=== PATIENT | male | born 1980 | race Caucasian/White ===

== ENCOUNTER 2017-01-15 17:39 | Emergency (ER) | payer BC ==
[~2017-01-15] VITALS: Ht 185.4 cm; Wt 124.7 kg
[2017-01-15] MEDS ORDERED: MORPHINE SULFATE 10 MG/ML VIAL. IV ONE ×2 (18:30→19:30)
[2017-01-15] MEDS ORDERED: IV NORMAL SALINE 1000ML BAG 1,000 ML IV ONE (18:30)
[2017-01-15] MEDS ORDERED: ONDANSETRON PF 4 MG/2 ML VIAL. IV ONE ×2 (18:30→19:30)
--- NOTE | 2017-01-15 18:32 | PHYS DOC ---
Past Medical History Past Medical History: No Pertinent History Past Surgical History: No Surgical History Alcohol Use: None Drug Use: None Adult General Chief Complaint Chief Complaint: ABDOMINAL PAIN HPI HPI Patient is a 36 year old male who presents with mild bilateral lower abdominal pain worse on the left side that began yesterday. Patient denies any nausea vomiting. He is also complaining of dysuria, patient denies any concerns for STDs. He states he feels like he needs to have a bowel movement but whenever he tries nothing comes out. Denies any history of constipation. Denies any fever. Denies any significant previous medical history. Review of Systems Review of Systems Constitutional: Denies fever or chills [] Eyes: Denies change in visual acuity, redness, or eye pain [] HENT: Denies nasal congestion or sore throat [] Respiratory: Denies cough or shortness of breath [] Cardiovascular: No additional information not addressed in HPI [] GI: Bilateral lower abdominal pain worse on the left side : Denies dysuria or hematuria [] Musculoskeletal: Denies back pain or joint pain [] Integument: Denies rash or skin lesions [] Neurologic: Denies headache, focal weakness or sensory changes [] Endocrine: Denies polyuria or polydipsia [] Current Medications Current Medications Current Medications Medications (Trade) Dose Ordered Sig/Rj Start Time Stop Time Status Last Admin Dose Admin Ciprofloxacin Lactate 200 ml @ 200 mls/hr 1X STAT 01/15/17 19:30 01/15/17 20:29 01/15/17 19:40 200 MLS/HR Metronidazole (FLAGYL 500Mmg PREMIX) 100 ml @ 100 mls/hr 1X ONCE 01/15/17 19:30 01/15/17 20:29 01/15/17 19:46 100 MLS/HR Morphine Sulfate 5 mg 1X ONCE 01/15/17 19:30 01/15/17 19:33 DC Ondansetron HCl (Zofran) 4 mg 1X ONCE 01/15/17 19:30 01/15/17 19:33 DC Ondansetron HCl 4 mg 4 mg 1X ONCE 01/15/17 18:30 01/15/17 18:39 DC 01/15/17 18:52 4 MG Sodium Chloride (Iv Sodium Chloride 0.9% 1000ml Bag) 1,000 ml @ 1,000 mls/hr 1X ONCE 01/15/17 18:30 01/15/17 19:29 DC 01/15/17 18:51 1,000 MLS/HR Allergies Allergies Allergies Coded Allergies Type Severity Reaction Last Updated Verified No Known Drug Allergies 01/15/17 No Physical Exam Physical Exam Constitutional: Well developed, well nourished, no acute distress, non-toxic appearance. [] HENT: Normocephalic, atraumatic, bilateral external ears normal, oropharynx moist, no oral exudates, nose normal. [] Eyes: PERRLA, EOMI, conjunctiva normal, no discharge. [] Neck: Normal range of motion, no tenderness, supple, no stridor. [] Cardiovascular:Heart rate regular rhythm, no murmur [] Lungs & Thorax: Bilateral breath sounds clear to auscultation [] Abdomen: Bowel sounds normal, soft, diffuse tenderness to the abdomen worse on the left side, negative Hodges's sign, negative psoas sign, negative obturator sign, no masses, no pulsatile masses. No guarding no rebound pain or tenderness. Skin: Warm, dry, no erythema, no rash. [] Back: No tenderness, no CVA tenderness. [] Extremities: No tenderness, no cyanosis, no clubbing, ROM intact, no edema. [] Neurologic: Alert and oriented X 3, normal motor function, normal sensory function, no focal deficits noted. [] Psychologic: Affect normal, judgement normal, mood normal. [] Current Patient Data Vital Signs Vital Signs Date Time Temp Pulse Resp B/P Pulse Ox O2 Delivery O2 Flow Rate FiO2 01/15/17 19:42 81 18 112/65 97 Room Air 01/15/17 18:12 99.1 99.1 Lab Values Laboratory Tests Test 01/15/17 18:10 White Blood Count 14.6x10^3/uL (4.0-11.0) H Red Blood Count 4.65x10^6/uL (4.30-5.70) Hemoglobin 13.3g/dL (13.0-17.5) Hematocrit 41.5% (39.0-53.0) Mean Corpuscular Volume 89fL (79-100) Mean Corpuscular Hemoglobin 29pg (25-35) Mean Corpuscular Hemoglobin Concent 32g/dL (31-37) Red Cell Distribution Width 13.7% (11.5-14.5) Platelet Count 200x10^3/uL (140-400) Neutrophils (%) (Auto) 79% (31-73) H Lymphocytes (%) (Auto) 12% (24-48) L Monocytes (%) (Auto) 8% (0-9) Eosinophils (%) (Auto) 1% (0-3) Basophils (%) (Auto) 0% (0-3) Neutrophils # (Auto) 11.5x10^3uL (1.8-7.7) H Lymphocytes # (Auto) 1.7x10^3/uL (1.0-4.8) Monocytes # (Auto) 1.2x10^3/uL (0.0-1.1) H Eosinophils # (Auto) 0.1x10^3/uL (0.0-0.7) Basophils # (Auto) 0.0x10^3/uL (0.0-0.2) Urine Collection Type Unknown Urine Color [place] Urine Clarity Clear Urine pH 5.5 Urine Specific [place] 1.010 Urine Protein Negativemg/dL (NEG-TRACE) Urine Glucose (UA) Negativemg/dL (NEG) Urine Ketones (Stick) Negativemg/dL (NEG) Urine Blood Negative (NEG) Urine Nitrite Positive (NEG) Urine Bilirubin Negative (NEG) Urine Urobilinogen Dipstick 1.0mg/dL (0.2 mg/dL) Urine Leukocyte Esterase Negative (NEG) Urine RBC Occ/HPF (0-2) Urine WBC Occ/HPF (0-4) Urine Squamous Epithelial Cells None/LPF Urine Bacteria 0/HPF (0-FEW) Sodium Level 140mmol/L (136-145) Potassium Level 3.8mmol/L (3.5-5.1) Chloride Level 104mmol/L (98-107) Carbon Dioxide Level 25mmol/L (21-32) Anion Gap 11 (6-14) Blood Urea Nitrogen 14mg/dL (8-26) Creatinine 1.0mg/dL (0.7-1.3) Estimated GFR (Cockcroft-Gault) 85.0 BUN/Creatinine Ratio 14 (6-20) Glucose Level 105mg/dL (70-99) H Calcium Level 9.4mg/dL (8.5-10.1) Total Bilirubin 0.5mg/dL (0.2-1.0) Aspartate Amino Transferase (AST) 15U/L (15-37) Alanine Aminotransferase (ALT) 20U/L (16-63) Alkaline Phosphatase 69U/L (46-116) Total Protein 7.2g/dL (6.4-8.2) Albumin 3.7g/dL (3.4-5.0) Albumin/Globulin Ratio 1.1 (1.0-1.7) Lipase 87U/L (73-393) Laboratory Tests 01/15/17 18:10 Laboratory Tests 01/15/17 18:10 EKG EKG [] Radiology/Procedures Radiology/Procedures []PROCEDURE CT abdomen and pelvis without intravenous contrast. HISTORY Lower abdominal pain, possible constipation. TECHNIQUE Helical CT of the abdomen and pelvis was performed without intravenous or oral contrast. Exposure: One or more of the following individualized dose reduction techniques were utilized for this examination: 1. Automated exposure control. 2. Adjustment of the mA and/or kV according to patient size. 3. Use of iterative reconstruction technique. COMPARISON None. FINDINGS Evaluation of solid organs is limited by lack of intravenous contrast. Evaluation of enteric structures may be limited by lack of oral contrast. Liver, spleen, pancreas, gallbladder, and bilateral adrenal glands are unremarkable. Bilateral kidneys and ureters free of stone or obstruction. No bowel obstruction is seen. Appendix is without evidence of inflammation. Urinary bladder is unremarkable. There is a large amount of inflammatory change involving the lower pelvis adjacent to the sigmoid colon centered at a few diverticula, compatible with acute diverticulitis. No perforation is seen. No focal fluid collection to suggest focal abscess is identified at this time. IMPRESSION 1. CT evidence of acute sigmoid diverticulitis. No perforation or abscess identified at this time. 2. No evidence of urinary stone. Electronically signed by: Jaime Neves MD (Jan 15, 2017 19:03:35) DICTATED and SIGNED BY: JAIME NEVES MD DATE: 01/15/171902 CC: JACINTO MORROW APRN ~ Course & Med Decision Making Course & Med Decision Making Pertinent Labs and Imaging studies reviewed. (See chart for details) Patient is in the ED with bilateral low abdominal pain worse on the left side and a sensation that he needs to go the bathroom but he can't since yesterday. He Is also complaining of dysuria with no concern for STDs urine was sent to lab for UA and STD. Urine positive for nitrites, CBC with a WBC of 14.6 and a slight left shift. CMP and lipase with no acute findings. Vitals on arrival to the ED temperature 99.1 heart rate 92 respiration 20 O2 sats 97% on room air blood pressure 128/73. CT of the abdomen and pelvic is noted for acute sigmoid diverticulitis. Patient was offered admission to the hospital, patient states he is in town on vacation at the [facility] and prefers not to be admitted. He appears well, he was given IV fluid, Cipro and Flagyl. He was discharged with Cipro and Flagyl, Zofran as well as hydrocodone as needed for pain. He was instructed to return to the ED at any point his symptoms worsen or he has concerning symptoms. He is to follow-up with his PCP and GI next week. Dragon Disclaimer Dragon Disclaimer This electronic medical record was generated, in whole or in part, using a voice recognition dictation system. Departure Departure Impression: Primary Impression: Diverticulitis Additional Impression: Urinary tract infection Disposition: 01 HOME, SELF-CARE Condition: STABLE Referrals: MALI RAMSEY MD Follow-up with your doctor or the provided drywall hanger next week Patient Instructions: Diverticulitis, [id number], Urinary Tract Infection Additional Instructions: You were seen for urinary tract infection and diverticulitis. You preferred to try outpatient treatment. Please ensure you take the antibiotics as prescribed and if your symptoms worsen or you have any concerns come back to the emergency room right away. Push fluids. Go slow on your diet starting with clear liquids. Scripts Hydrocodone/Apap 5-325 ([place] 5-325 Tablet)1 Each Tablet1-2 Tab PO Q4-6HRS #25 TAB Prov:MUTUNGAJACINTO RESOLUTION AGENT 01/15/17 Ondansetron (Zofran Odt)4 Mg Tab.rapdis1 Tab SL Q8HRS #15 TAB Prov:MUTUNGAJACINTO RESOLUTION AGENT 01/15/17 Metronidazole (Flagyl)500 Mg [id number] Mg PO TID #30 TAB Prov:MUTUNGAJACINTO RESOLUTION AGENT 01/15/17 Ciprofloxacin Hcl (Cipro)500 Mg Tablet1 Tab PO BID #20 TAB Prov:MUTUNGAJACINTO RESOLUTION AGENT 01/15/17 Problem Qualifiers Primary Impression: Diverticulitis Diverticulitis site: unspecified part of intestinal tract Diverticulitis bleeding: without bleeding Diverticulitis complication: without perforation or abscess Qualified Code: K57.92 - Diverticulitis of intestine, part unspecified, without perforation or abscess without bleeding Additional Impression: Urinary tract infection Urinary tract infection type: acute cystitis Hematuria presence: without hematuria Qualified Code: N30.00 - Acute cystitis without hematuria JACINTO MORROW APRN Jan 15, 2017 18:32
[2017-01-15 18:39] LABS: BASO % 0 % (0-3); EOS % 1 % (0-3); HEMATOCRIT 41.5 % (39.0-53.0); HEMOGLOBIN 13.3 g/dL (13.0-17.5); LYMPH # 1.7 x10^3/uL (1.0-4.8); LYMPH % 12 % (24-48); MEAN CORPUSCULAR HEMOGLOBIN 29 pg (25-35); MEAN CORPUSCULAR HGB CONC 32 g/dL (31-37); MEAN CORPUSCULAR VOLUME 89 fL (79-100); MONO % 8 % (0-9); NEUT % 79 % (31-73); PLATELET COUNT 200 x10^3/uL (140-400); RED BLOOD COUNT 4.65 x10^6/uL (4.30-5.70); RED CELL DISTRIBUTION WIDTH 13.7 % (11.5-14.5); WHITE BLOOD COUNT 14.6 x10^3/uL (4.0-11.0)
[2017-01-15 18:41] LABS: BILIRUBIN,URINE NEGATIVE (NEG); GLUCOSE,URINE NEGATIVE (NEG); NITRITE,URINE POSITIVE (NEG); PH,URINE 5.5; PROTEIN,URINE NEGATIVE (NEG-TRACE)
[2017-01-15 18:46] LABS: CALCIUM 9.4 mg/dL (8.5-10.1); POTASSIUM 3.8 mmol/L (3.5-5.1)
[2017-01-15 18:49] LABS: BACTERIA,URINE 0 /HPF (0-FEW); RBC,URINE OCC /HPF (0-2); WBC,URINE OCC /HPF (0-4)
[2017-01-15 18:52] LABS: ALBUMIN 3.7 g/dL (3.4-5.0); ALBUMIN/GLOBULIN RATIO 1.1 (1.0-1.7); TOTAL BILIRUBIN 0.5 mg/dL (0.2-1.0); TOTAL PROTEIN 7.2 g/dL (6.4-8.2)
--- NOTE | 2017-01-15 19:04 | RAD ---
PROCEDURE CT abdomen and pelvis without intravenous contrast. HISTORY Lower abdominal pain, possible constipation. TECHNIQUE Helical CT of the abdomen and pelvis was performed without intravenous or oral contrast. Exposure: One or more of the following individualized dose reduction techniques were utilized for this examination: 1. Automated exposure control. 2. Adjustment of the mA and/or kV according to patient size. 3. Use of iterative reconstruction technique. COMPARISON None. FINDINGS Evaluation of solid organs is limited by lack of intravenous contrast. Evaluation of enteric structures may be limited by lack of oral contrast. Liver, spleen, pancreas, gallbladder, and bilateral adrenal glands are unremarkable. Bilateral kidneys and ureters free of stone or obstruction. No bowel obstruction is seen. Appendix is without evidence of inflammation. Urinary bladder is unremarkable. There is a large amount of inflammatory change involving the lower pelvis adjacent to the sigmoid colon centered at a few diverticula, compatible with acute diverticulitis. No perforation is seen. No focal fluid collection to suggest focal abscess is identified at this time. IMPRESSION 1. CT evidence of acute sigmoid diverticulitis. No perforation or abscess identified at this time. 2. No evidence of urinary stone. Electronically signed by: Jaime Johnson MD (Jan 15, 2017 19:03:35)
[2017-01-15] MEDS ORDERED: METRONIDAZOLE 500mg PREMIX 100 ML IV ONE (19:30)
[2017-01-15] MEDS ORDERED: CIPROFLOXACIN 400MG PREMIX 200 ML IV STA (19:30)
[2017-01-15 20:30] VITALS: BP 125/73
[2017-01-15] MEDS ORDERED: METR500T PO (20:31)
[2017-01-15] MEDS ORDERED: CIPR500T94 PO (20:31)
[2017-01-15] MEDS ORDERED: ONDA4TAB10 SL (20:31)
[2017-01-15] MEDS ORDERED: HYDR-971 PO (20:31)
== END 2017-01-15 20:56 | disposition home or self-care (01) ==
LOC: ER 17:39
DX: K57.32 Diverticulitis of large intestine without perforation or abscess without bleeding (principal); N39.0 Urinary tract infection, site not specified
CPT/HCPCS: 36415; 74176; 80053; 81001; 83690; 85027; 87086; 96361; 96365; 96368; 96375; 99285; J0744; J2270; J2405; J3490; J7030; 87491; 87591